=== PATIENT | male | born 1990 | race African-American/Black ===

== ENCOUNTER 2017-09-23 13:44 | Emergency (ER) | payer SELFPAY ==
[2017-09-23 13:58] VITALS: BP 164/91
--- NOTE | 2017-09-23 13:58 | ED Physician Documentation ---
Ear Complaints - HISTORIAN Historian: patient - HPI Additional Information: working on old house 2 days ago working overhead felt debris fall int ear-has been water irrigating since now increase pain and decreased hearing lt ear Timing: still present, worse Location of Pain: L ear Severity: mild, moderate Associated Symptoms: dull pain, aching, hearing loss. denies: discharge - ROS CONST: no problems CVS/RESP: none GI/: denies: black stools, nausea, vomiting MS/SKIN/LYMPH: none NEURO/PSYCH: denies: weakness, numbness All Systems -: Yes - PAST HX Past History: other (ggh) Allergies/Adverse Reactions: Allergies Allergy/AdvReac Type Severity Reaction Status Date / Time No Known Allergies Allergy Verified 09/23/17 13:58 Home Medications: Ambulatory Orders Medication Instructions Recorded NK [NK] 09/23/17 - SOCIAL HX Smoking History: cigarettes Alcohol Use: none Drug Use: none - FAMILY HX Family History: No - REVIEWED ASSESSMENTS Nursing Assessment Reviewed: Yes Vitals Reviewed: Yes Ear Complaint Physical Exam - EXAM General Appearance: mild distress Ear: auricle nml, 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 No: pain w movement of auricl, material in canal, cerumen, discharge Mouth/Throat: lips nml, gums nml, pharynx nml (sl red) Nose: nml inspection Head/Neck: atraumatic, neck nml inspection Eye: eyes nml inspection Resp/CVS: chest non-tender, breath sounds nml, heart sounds nml, no resp. distress, lungs clear, reg. rate & rhythm Abdomen: non-tender Skin: nml color Neuro/Psych: oriented x3, mood/affect nml Discharge Clincal Impression: otitis media Referrals: Primary Doctor,No [Primary Care Provider] - 2 Days Comments: home meds Condition: Good Disposition: HOME, SELF-CARE Decision to Admit: NO Decision Time: 14:05
== END 2017-09-23 14:10 | disposition home or self-care (01) ==
LOC: ED 13:44
DX: H66.92 Otitis media, unspecified, left ear (principal)
CPT/HCPCS: 99282